=== PATIENT | female | born 1965 | race Caucasian/White ===

== ENCOUNTER 2021-02-14 15:46 | Outpatient (CLI) | payer OTHER, SELFPAY ==
--- NOTE | 2021-02-14 16:15 | XR_ITS ---
WS: [id number] SCREENING DEXA SCAN [employer] CLINICAL INFORMATION: Z78.0 - Asymptomatic menopausal state COMPARISON: None. FINDINGS: The L1-L4 bone mineral density measures 1.334 g/cm2. This corresponds to a T score score of 1.3 and Z score of 1.3. Left femoral neck bone mineral density measures 1.233 g/cm2. This corresponds to a T score of 1.8 and Z score of 1.8. Right femoral neck bone mineral density measures 1.247 g/cm2. This corresponds to a T score 1.9of and Z score of 2.0. Mean femoral neck bone mineral density measures 1.240 g/cm2. This corresponds to a T score of 1.8 and Z score of 1.9. XR/XR DEXA axial skeleton* 18108 IMPRESSION: Normal bone mineralization. Patient's FRAX calculated 10 year probability for major osteoporotic fracture i s 8.3 % and osteoporotic hip fracture is 0.1%.
== END 2021-02-14 15:47 | disposition home or self-care (01) ==
LOC: RADWPI 15:52
PROVIDERS: PCP Internal Medicine; Visit Provider Obstetrics & Gynecology
DX: Z78.0 Asymptomatic menopausal state (principal); Z13.820 Encounter for screening for osteoporosis
CPT/HCPCS: 77080

== ENCOUNTER 2021-03-08 07:17 | Outpatient (CLI) | payer OTHER, SELFPAY ==
--- NOTE | 2021-03-08 07:24 | MM_ITS ---
WS: [id number] BILATERAL SCREENING DIGITAL MAMMOGRAM WITH CAD HISTORY: SCREENING COMPARISON: 11/07/2018, 04/27/2017 and 04/17/2016 Bilateral CC and MLO views submitted. Computer aided detection analyzed. Breast composition: There are scattered areas of fibroglandular density. No suspicious masses, microc alcifications or architectural distortion. Focal asymmetries in each breast are stable. MM/[place] [id number] IMPRESSION: BI-RADS: 2-Benign FOLLOW UP: 1 Year Follow-up
== END 2021-03-08 07:18 | disposition home or self-care (01) ==
LOC: RADSHAW 07:22
PROVIDERS: PCP Internal Medicine; Visit Provider Obstetrics & Gynecology
DX: Z12.31 Encounter for screening mammogram for malignant neoplasm of breast (principal)
CPT/HCPCS: 77067

== ENCOUNTER → 2024-03-07 15:33 | Outpatient (BNVA) | payer OTHER, SELFPAY | PROVIDERS: PCP Internal Medicine; Visit Provider Nurse Practitioner Women's Health | DX: Z12.39 Encounter for other screening for malignant neoplasm of breast (principal) | CPT/HCPCS: 84315; 87086 ==

== ENCOUNTER 2024-05-01 14:46 | Outpatient (CLI) | payer OTHER, SELFPAY ==
--- NOTE | 2024-05-01 15:00 | XR_ITS ---
WS: [id number] SCREENING DEXA SCAN [employer] CLINICAL INFORMATION: Z13.820 - Encounter for screening for osteoporosis COMPARISON: 2020 FINDINGS: The L1-L4 bone mineral density measures 1.218 g/cm2. This corresponds to a T score score of 0.3 and Z score of 0.4. Left femoral neck bone mineral density measures 1.176 g/cm2. This corresponds to a T score of 1.3 and Z score of 1.4. Right femoral neck bone mineral density measures 1.184 g/cm2. This corresponds to a T score 1.4of and Z score of 1.5. Mean femoral neck bone mineral density measures 1.180 g/cm2. This corresponds to a T score of 1.4 and Z score of 1.5. XR/XR DEXA axial skeleton* [id number] IMPRESSION: Normal bone mineralization. Patient's FRAX calculated 10 year probability for major osteoporotic fracture i s 5.2% and osteoporotic hip fracture is 0.1%. Bone mineral density lumbar spine decreased -8.7% Bone mineral density femoral necks decreased -4.8%
--- NOTE | 2024-05-01 15:30 | MM_ITS ---
WS: [id number] VIEWS: MLO and CC views both breasts. 3D digital tomosynthesis is also included in this exam. Comparison made with prior exam of 08/28/2006, 08/28/2007, 08/31/2008, 09/14/2009, 09/15/2010, 012, 01/22/2013, 02/19/2014, 04/15/2015, 04/17/2016, 04/27/2017, 11/07/2018, 03/08/2021, Findings: There was no sign of mass, architectural distortion or suspicious calcification in either breast. The re are scattered areas of fibroglandular density MM/[place] [id number] Impression: BI-RADS: 2-Benign finding. FOLLOW-UP: 1 Year Follow-up This mammogram was also analyzed by the Computer Aided Detection System [employer].
== END 2024-05-01 14:47 | disposition home or self-care (01) ==
LOC: RAD 14:46
PROVIDERS: PCP Internal Medicine; Visit Provider Nurse Practitioner Women's Health
DX: Z13.820 Encounter for screening for osteoporosis (principal); Z78.0 Asymptomatic menopausal state; R92.323 Mammographic fibroglandular density, bilateral breasts
CPT/HCPCS: 77063; 77067; 77080

== ENCOUNTER → 2024-05-02 14:29 | Outpatient (BNVA) | payer OTHER, SELFPAY | PROVIDERS: PCP Internal Medicine; Visit Provider Nurse Practitioner Women's Health | DX: Z78.0 Asymptomatic menopausal state (principal); R53.83 Other fatigue | CPT/HCPCS: 82306 ==

== ENCOUNTER 2024-08-14 07:25 | Day surgery (SDC) | payer OTHER, SELFPAY ==
[2024-08-14 07:32] VITALS: BP 95/70; PULSE 88; RESP 18; TEMP 36.1; O2SAT 94
[2024-08-14 07:40] VITALS: BMI 31.9
[2024-08-14] MEDS: sodium chloride 0.9% 1,000 ML 30 ML IV (07:47)
--- NOTE | 2024-08-14 07:48 | P.HP_ITS ---
Same Day Surgery H&P Indication for Procedure/HPI DATE OF PROCEDURE: August 14, 2024 CHIEF COMPLAINT/INDICATIONFOR SURGICAL PROCEDURE: need for screening colonoscopy PREOP DIAGNOSIS: need for screening colonoscopy PLANNED PROCEDURE: Operation Date: 08/14/24 08:20 Proposed Procedures p Colonoscopy - 20015, G0105, Z12.11(Not Applicable) - Derek Tolentino MD Medications/Allergies* Home Medications Medication Instructions Recorded Confirmed Type biotin 1 mg capsule 1 mg PO DAILY 01/22/20 08/14/24 History citalopram 40 mg tablet 40 mg PO DAILY 01/22/20 08/14/24 History dupilumab 100 mg/0.67 mL 100 mg SUBCUT .every 2 weeks 03/07/24 08/14/24 History subcutaneous syringe (Dupixent) estradiol 0.0375 mg/24 hr See Rx Instructions .Route .COMPLEX 08/12/24 08/14/24 History semiweekly transdermal patch Allergies/Adverse Reactions Allergy/AdvReac Type Severity Reaction Status Date / Time codeine Allergy vomiting Verified 08/12/24 12:42 Current Medications: Generic Name Dose Route Start Last Admin Trade Name Freq PRN Reason Stop Dose Admin Sodium Chloride 1,000 mls @ 30 mls/hr 08/14/24 07:30 08/14/24 07:47 Sodium Chloride 0.9% IV 08/15/24 07:29 30 mls/hr .Q24H KVNG Administration Pertinent History/Comorbid Conditions* Medical History (Updated 03/07/24 @ 15:34 by Ariella Thacker APN, BRADEN) Hyperlipidemia Depression Recurrent UTI (urinary tract infection) Has standing prescription for Macrobid when needed. Evaluated by Dr. Tidwell. Urgency incontinence Longstanding problem. Treated by Dr. Tidwell. Developed urinary retention with Detrol and medication was stopped. History of urinary retention From Detrol. Resolved after stopping Detrol. Surgical History (Updated 01/28/21 @ 14:34 by Stevenson Kellogg MD) History of weight loss surgery (08/11/20) Laparoscopic. Performed in [place]. Status post arthroscopic surgery of right knee (~09/2012) History of vaginal surgery (09/12/07) Obtryx transobturator suburethral sling. [place] [facility] [place] History of hysterectomy (10/01/96) AP with David Pereira procedure. Performed by Dr. Gunderson at [facility] in [place], [place]. Family History (Updated 01/22/20 @ 15:25 by Jenn Palacio LPN) Alzheimer disease Father Heart disease Mother Brother Hypercholesteremia Mother Brother Breast cancer Grandmother paternal Mother Hypertension Brother Stroke Mother Social History Smoking and tobacco/nicotine status: never used tobacco/nicotine Pertinent Exam Findings alert, oriented x 3, clear to auscultation bilaterally, regular rate & rhythm and procedure specific exam findings Recommendations Surgery/Procedure today Coding Level of Care Code Acute Code for Chg Fwd
--- NOTE | 2024-08-14 07:56 | ANES.PREANE2 ---
Pre-Anesthetic Assessment Height/Weight: Height 1.73 m Weight 95.254 kg Temp Pulse Resp BP Pulse Ox O2 Del Method 97.0 F L 88 18 95/70 94 Room Air 08/14/24 07:32 08/14/24 07:32 08/14/24 07:32 08/14/24 07:32 08/14/24 07:32 08/14/24 07:32 Preop Diagnosis: need for screening colonoscopy Operation Date: 08/14/24 08:20 Proposed Procedures p Colonoscopy - 79185, G0105, Z12.11(Not Applicable) - Derek Tolentino MD Familial anesthetic complications: N/V Was Beta Saloni taken within 24 hours: N/A Was Clonidine taken within 24 hours: N/A Last intake: Intake Last Liquid Date 08/13/24 Last Liquid Time 19:00 Last Solid Date 08/12/24 Last Solid Time 19:00 Social No alcohol and No tobacco Exam alert, oriented x 3, clear to auscultation bilaterally and regular rate & rhythm Airway Submandibular: within normal limits Cervical ROM: within normal limits Mallampati: Class II Dentition: full History/ROS No significant history except as noted and No significant complaints Pulmonary None reported CV/HEM None reported Urinary Tract Infection Hepatic None reported GI None reported Metabolic None reported Musc/skel None reported Neuropsych Anxiety Anesthetic Plan ASA status: 2 Anesthesia: Anesthesia Evaluation, General and MAC Medications/Allergies Home Medications Medication Instructions Recorded Confirmed Last Taken Type biotin 1 mg capsule 1 mg PO DAILY 01/22/20 08/14/24 08/12/24 History citalopram 40 mg tablet 40 mg PO DAILY 01/22/20 08/14/24 08/12/24 History dupilumab 100 mg/0.67 mL 100 mg SUBCUT .every 2 weeks 03/07/24 08/14/24 08/03/24 History subcutaneous syringe (Dupixent) estradiol 0.01% (0.1 mg/gram) 1 g vaginal .2-3 times weekly 03/07/24 08/14/24 Unknown Rx vaginal cream (Estrace) #42.5 grams estradiol 0.0375 mg/24 hr See Rx Instructions .Route .COMPLEX 08/12/24 08/14/24 08/10/24 History semiweekly transdermal patch Allergies Allergy/AdvReac Type Severity Reaction Status Date / Time codeine Allergy vomiting Verified 08/12/24 12:42 Current Medications Generic Name Dose Route Start Last Admin Trade Name Freq PRN Reason Stop Dose Admin Sodium Chloride 1,000 mls @ 30 mls/hr 08/14/24 07:30 08/14/24 07:47 Sodium Chloride 0.9% IV 08/15/24 07:29 30 mls/hr .Q24H KVNG Administration PFSH Anesthesia Medical History Hyperlipidemia Depression Recurrent UTI (urinary tract infection) Has standing prescription for Macrobid when needed. Evaluated by Dr. Tidwell. Urgency incontinence Longstanding problem. Treated by Dr. Tidwell. Developed urinary retention with Detrol and medication was stopped. History of urinary retention From Detrol. Resolved after stopping Detrol. Surgical History History of weight loss surgery (08/11/20) Laparoscopic. Performed in [place]. Status post arthroscopic surgery of right knee (~09/2012) History of vaginal surgery (09/12/07) Obtryx transobturator suburethral sling. [place] [facility] [place] History of hysterectomy (10/01/96) AP with Marshal Eula Kelli procedure. Performed by Dr. Gunderson at [facility] in [place], [place]. Family History Grandmother Breast cancer paternal Mother Breast cancer Stroke Heart disease Hypercholesteremia Brother Heart disease Hypertension Hypercholesteremia Father Alzheimer disease Social History Smoking and tobacco/nicotine status: never used tobacco/nicotine Data Anesthesia Cardiac Studies: No Data to Display
[2024-08-14 08:25] VITALS: BP 97/61; PULSE 75; RESP 12; TEMP 36.2; O2SAT 93
[2024-08-14 08:42] VITALS: BP 101/67; PULSE 70; RESP 18; O2SAT 94
--- NOTE | 2024-08-14 08:45 | ANE.PACU2 ---
Inpatient post-anesthesia follow up: Airway intact: Yes Vital signs: Temperature 97.1 F Pulse Rate 70 Respiratory Rate 18 Blood Pressure 101/67 Pulse Oximetry 94 Oxygen Delivery Me thod Room Air Oxygen Flow Rate Fraction of Inspir ed Oxygen Hydration adequate: Yes Nausea and vomiting: No Pain level: 1 Mental status: Baseline
== END 2024-08-14 08:45 | disposition home or self-care (01) ==
PROVIDERS: PCP Internal Medicine; Visit Provider Surgery
PROC: 0DJD8ZZ Inspection of Lower Intestinal Tract, Via Natural or Artificial Opening Endoscopic (ICD-10-PCS; CPT 45330; 2024-08-14 08:20)
DX: Z12.11 Encounter for screening for malignant neoplasm of colon (principal); E78.5 Hyperlipidemia, unspecified; F32.A Depression, unspecified
CPT/HCPCS: 45330; J2704; J7030

== ENCOUNTER 2024-09-16 05:55 | Day surgery (SDC) | payer OTHER, SELFPAY ==
--- NOTE | 2024-09-16 06:05 | W.PM.OPSFHP ---
Same Day Surgery H&P Indication for Procedure/HPI DATE OF PROCEDURE: September 16, 2024 CHIEF COMPLAINT/INDICATIONFOR SURGICAL PROCEDURE: need for screening colonoscopy PREOP DIAGNOSIS: need for screening colonoscopy PLANNED PROCEDURE: Operation Date: 09/16/24 07:00 Proposed Procedures p Colonoscopy 97458, G0105, Z12.11(Not Applicable) - Derek Tolentino MD Medications/Allergies* Home Medications Medication Instructions Recorded Confirmed Type biotin 1 mg capsule 1 mg PO DAILY 01/22/20 09/10/24 History citalopram 40 mg tablet 40 mg PO DAILY 01/22/20 09/10/24 History dupilumab 100 mg/0.67 mL 100 mg SUBCUT .every 2 weeks 03/07/24 09/10/24 History subcutaneous syringe (Dupixent) estradiol 0.0375 mg/24 hr 1 patch topical .TWICEWEEKLY 08/12/24 09/10/24 History semiweekly transdermal patch Allergies/Adverse Reactions Allergy/AdvReac Type Severity Reaction Status Date / Time codeine Allergy vomiting Verified 09/10/24 11:51 Pertinent History/Comorbid Conditions* Medical History (Updated 03/07/24 @ 15:34 by Ariella Thacker APN, BRADEN) Hyperlipidemia Depression Recurrent UTI (urinary tract infection) Has standing prescription for Macrobid when needed. Evaluated by Dr. Tidwell. Urgency incontinence Longstanding problem. Treated by Dr. Tidwell. Developed urinary retention with Detrol and medication was stopped. History of urinary retention From Detrol. Resolved after stopping Detrol. Surgical History (Updated 01/28/21 @ 14:34 by Stevenson Kellogg MD) History of weight loss surgery (08/11/20) Laparoscopic. Performed in [place]. Status post arthroscopic surgery of right knee (~09/2012) History of vaginal surgery (09/12/07) Obtryx transobturator suburethral sling. Per[place] Tidwell [place] [facility] [place], [place] History of hysterectomy (10/01/96) AP with Marshal Eula Kelli procedure. Performed by Dr. Gunderson at [facility] [place] [facility] in [place], [place]. Family History (Updated 01/22/20 @ 15:25 by Jenn Palacio LPN) Alzheimer disease Father Heart disease Mother Brother Hypercholesteremia Mother Brother Breast cancer Grandmother paternal Mother Hypertension Brother Stroke Mother Social History Smoking and tobacco/nicotine status: never used tobacco/nicotine Pertinent Exam Findings alert, oriented x 3, clear to auscultation bilaterally and regular rate & rhythm Recommendations Surgery/Procedure today Coding Level of Care Code Acute Code for Chg Fwd
[2024-09-16 06:08] VITALS: BP 125/77; PULSE 98; RESP 18; TEMP 36.4; O2SAT 97; BMI 29.5
[2024-09-16] MEDS: sodium chloride 0.9% 1,000 ML 30 ML IV (06:15)
--- NOTE | 2024-09-16 06:45 | P.ANESASSM_ITS ---
Pre-Anesthetic Assessment Height/Weight: Height 1.75 m Weight 90.718 kg Temp Pulse Resp BP Pulse Ox O2 Del Method 97.6 F 98 18 125/77 97 Room Air 09/16/24 06:08 09/16/24 06:08 09/16/24 06:08 09/16/24 06:08 09/16/24 06:08 09/16/24 06:08 Preop Diagnosis: need for screening colonoscopy Operation Date: 09/16/24 07:00 Proposed Procedures p Colonoscopy 16173, G0105, Z12.11(Not Applicable) - Derek Tolentino MD Familial anesthetic complications: PONV Was Beta Saloni taken within 24 hours: N/A Was Clonidine taken within 24 hours: N/A Last intake: Intake Last Liquid Date 09/15/24 Last Liquid Time 20:30 Last Solid Date 09/14/24 Last Solid Time 19:00 Social No alcohol and No tobacco Exam alert and oriented x 3 Airway Submandibular: within normal limits Cervical ROM: within normal limits Mallampati: Class II Dentition: full Pulmonary None reported CV/HEM None reported None reported Hepatic None reported GI None reported Metabolic None reported Musc/skel None reported Neuropsych Anxiety Anesthetic Plan ASA status: 2 Anesthesia: Anesthesia Evaluation, General and MAC Medications/Allergies Home Medications Medication Instructions Recorded Confirmed Last Taken Type biotin 1 mg capsule 1 mg PO DAILY 01/22/20 09/10/24 09/14/24 History citalopram 40 mg tablet 40 mg PO DAILY 01/22/20 09/10/24 09/14/24 History dupilumab 100 mg/0.67 mL 100 mg SUBCUT .every 2 weeks 03/07/24 09/10/24 08/24/24 History subcutaneous syringe (Dupixent) estradiol 0.01% (0.1 mg/gram) 1 g vaginal .2-3 times weekly 03/07/24 09/10/24 Unknown Rx vaginal cream (Estrace) #42.5 grams estradiol 0.0375 mg/24 hr 1 patch topical .TWICEWEEKLY 08/12/24 09/10/24 09/10/24 History semiweekly transdermal patch ondansetron 8 mg disintegrating 8 mg PO Q8H PRN nausea and 08/20/24 09/16/24 09/15/24 Rx tablet vomiting #20 tabs polyethylene glycol 3350 17 17 g PO BID 4 days #136 grams 08/20/24 09/16/24 09/15/24 Rx gram/dose oral powder (Miralax) Allergies Allergy/AdvReac Type Severity Reaction Status Date / Time codeine Allergy vomiting Verified 09/10/24 11:51 Current Medications Generic Name Dose Route Start Last Admin Trade Name Freq PRN Reason Stop Dose Admin Sodium Chloride 1,000 mls @ 30 mls/hr 09/16/24 06:00 09/16/24 06:15 Sodium Chloride 0.9% IV 09/17/24 05:59 30 mls/hr .Q24H KVNG Administration PFSH Anesthesia Medical History Hyperlipidemia Depression Recurrent UTI (urinary tract infection) Has standing prescription for Macrobid when needed. Evaluated by Dr. Tidwell. Urgency incontinence Longstanding problem. Treated by Dr. Tidwell. Developed urinary retention with Detrol and medication was stopped. History of urinary retention From Detrol. Resolved after stopping Detrol. Surgical History History of weight loss surgery (08/11/20) Laparoscopic. Performed in [place]. Status post arthroscopic surgery of right knee (~09/2012) History of vaginal surgery (09/12/07) Obtryx transobturator suburethral sling. Performed by Dr. Tidwell at [facility] [place], [place] History of hysterectomy (10/01/96) AP with Marshal Eula Kelli procedure. Performed by Dr. Gunderson at [facility] in [place], [place]. Family History Grandmother Breast cancer paternal Mother Breast cancer Stroke Heart disease Hypercholesteremia Brother Heart disease Hypertension Hypercholesteremia Father Alzheimer disease Social History Smoking and tobacco/nicotine status: never used tobacco/nicotine Data Anesthesia Cardiac Studies: No Data to Display
[2024-09-16 07:33] VITALS: BP 91/49; PULSE 70; RESP 16; TEMP 36.3; O2SAT 94
[2024-09-16 07:43] VITALS: BP 96/53; PULSE 76; RESP 16; O2SAT 98
--- NOTE | 2024-09-16 08:10 | ANE.PACU2 ---
Inpatient post-anesthesia follow up: Airway intact: Yes Vital signs: Temperature 97.3 F Pulse Rate 76 Respiratory Rate 16 Blood Pressure 96/53 Pulse Oximetry 98 Oxygen Delivery Me thod Room Air Oxygen Flow Rate Fraction of Inspir ed Oxygen Hydration adequate: Yes Nausea and vomiting: No Pain level: 1
== END 2024-09-16 08:10 | disposition home or self-care (01) ==
PROVIDERS: PCP Internal Medicine; Visit Provider Surgery
PROC: 0DJD8ZZ Inspection of Lower Intestinal Tract, Via Natural or Artificial Opening Endoscopic (ICD-10-PCS; CPT 45330; 2024-09-16 07:00)
DX: Z12.11 Encounter for screening for malignant neoplasm of colon (principal); E78.5 Hyperlipidemia, unspecified; F32.A Depression, unspecified; F41.9 Anxiety disorder, unspecified
CPT/HCPCS: 45330; J2704; J7030

== ENCOUNTER → 2025-03-17 15:37 | Outpatient (BNVA) | payer OTHER, SELFPAY | PROVIDERS: PCP Internal Medicine; Visit Provider Internal Medicine Cardiovascular Disease | DX: Z13.6 Encounter for screening for cardiovascular disorders (principal) | CPT/HCPCS: 93005 ==